=== PATIENT | female | born 1960 ===

== ENCOUNTER 2022-02-11 13:05 | Outpatient (CLI) | payer OTHER | END 2022-02-11 13:06 | disposition home or self-care (01) | LOC: CSHMAMMO 13:05 | PROVIDERS: ATTEND Surgery | DX: Z08 Encounter for follow-up examination after completed treatment for malignant neoplasm (principal); Z85.3 Personal history of malignant neoplasm of breast | CPT/HCPCS: 77066; G0279 ==